=== PATIENT | female | born 1975 | race Caucasian/White ===

== ENCOUNTER → 2016-06-17 | Outpatient (CLI) | payer OTHER, MEDICAID | END | disposition disaster alternative care site (69) | LOC: GRAD 06-02 08:58 | DX: M54.16 Radiculopathy, lumbar region (principal); M51.16 Intervertebral disc disorders with radiculopathy, lumbar region; M47.26 Other spondylosis with radiculopathy, lumbar region ==

== ENCOUNTER 2016-07-04 16:06 | Emergency (ER) | payer OTHER, MEDICAID ==
--- NOTE | ~2016-07-04 | ER ---
PATIENT'S NAME: PAULINO ARELLANO [facility] AGE: 40 Y [address] ROOM: [place] [id number] LOCATION: [facility] ADMIT DATE: 07/04/2016 ER/Outpatient Report DISCHARGE DATE: 07/04/2016 FAMILY PHYSICIAN: Michela Spring MD ATTENDING PHYSICIAN: Nino Schumacher Time of Arrival: 1609 hours. Time of Evaluation: 1609 hours. CHIEF COMPLAINT: Right foot injury. HISTORY OF PRESENT ILLNESS: The patient states approximately a half an hour prior to arrival, she has gone down some steps, and she rolled her ankle and fell down about 3 steps. She is having pain of the toes and across the top of her foot. Denies any other injury with the fall. ALLERGIES: NO KNOWN ALLERGIES. CURRENT MEDICATIONS: On her chart and reviewed by me. PAST MEDICAL HISTORY: Includes nbl-esqhyex-dliiupxfy diabetes, hypertension, chronic pain. PAST SURGICAL HISTORY: Carpal tunnel, wrist surgery, . SOCIAL HISTORY: She smokes 3/4 of a pack per day and has for the last 24 years. Denies use of drugs or alcohol. REVIEW OF SYSTEMS: All negative other than those mentioned in the HPI. PHYSICAL EXAMINATION: VITAL SIGNS: She weighs 152.3 kg, blood pressure is 94/66, pulse of 95, respirations 16, temperature of 97.9, O2 saturation is 97% on room air. GENERAL: She is awake, alert, and oriented x4. SKIN: [place], warm, and dry. RESPIRATIONS: Even and nonlabored. Lung sounds are clear throughout. HEART: Regular rate and rhythm. She has no obvious deformity of the right foot. She has strong pedal pulses. No bruising of the toes noted. PATIENT'S NAME: PAULINO ARELLANO [facility] AGE: 40 Y [address] ROOM: [place], [place] [address] LOCATION: [facility] ADMIT DATE: 07/04/2016 ER/Outpatient Report DISCHARGE DATE: 07/04/2016 FAMILY PHYSICIAN: Michela Spring MD ATTENDING PHYSICIAN: Nino Schumacher LABORATORY DATA AND X-RAYS: X-ray was completed. No acute bony abnormality was seen. EMERGENCY DEPARTMENT COURSE: The patient was given [place] 5/325 x2 tabs p.o. IMPRESSION: Contusion to the right toe. PLAN: Home, rest, elevate, ice to the toes. I did write a prescription for some [place] [facility] and just received her Percocet on 06/20/2016. I canceled the order for the [place], and the patient is supposed to take the oxycodone as previously prescribed. Follow up with Dr. Michela Spring if pain persists or worsens in the next 2 to 3 days. MARTHA BEACH APRN FOR MD DANAY BAUTISTA/sergio /[id number] d: 07/04/163 t: 07/12/163, OUTPATIENT REPORT
== END 2016-07-04 16:41 | disposition disaster alternative care site (69) ==
LOC: GACC 16:06
DX: S90.121A Contusion of right lesser toe(s) without damage to nail, initial encounter (principal); I10 Essential (primary) hypertension; E11.9 Type 2 diabetes mellitus without complications; F17.210 Nicotine dependence, cigarettes, uncomplicated; W10.9XXA Fall (on) (from) unspecified stairs and steps, initial encounter